=== PATIENT | female | born 2000 | race Caucasian/White ===

== ENCOUNTER 2022-11-23 21:30 | Emergency (ER) | payer SELFPAY ==
[~2022-11-23] VITALS: Ht 162.6 cm; Wt 74.8 kg
--- NOTE | 2022-11-23 21:33 | NUR ---
pT ARRIVED WITH COMPLAINT OF RIGHT SHOULDER PAIN. PT ALERT AND ORIENTED X4, VSS, NO SIGNS OF ACUTE DISTRESS. WILL PREP PT FOR MODERATE SEDATION PER MDS REQUEST.
[2022-11-23 21:36] VITALS: BP_SYST 126
[2022-11-23] MEDS ORDERED: PROPOFOL 200MG/ 20ML VIAL (DIPRIVAN) IV ONE (21:45)
--- NOTE | 2022-11-23 22:45 | NUR ---
PT PREP FOR MODERATE SEDATION WITH MONITOR, CRASH CART AT BEDSIDE, MD, RN, RT AT BEDSIDE.
--- NOTE | 2022-11-23 22:59 | NUR ---
REDUCTION SUCCESFUL PER MD. PT AWAKE AND ALERT X4, VSS.
[2022-11-23] MEDS ORDERED: NAPR-1172 PO (23:15)
[2022-11-23 23:17] VITALS: BP_SYST 121
--- NOTE | 2022-11-23 23:35 | NUR ---
Patient given written and verbal discharge instructions and verbalizes understanding. ER MD discussed with patient the results and treatment provided. Patient in stable condition. ID arm band removed. IV catheter removed intact and dressing applied, no active bleeding. Rx of NAPROXYN given. Patient educated on pain management and to follow up with PMD. Pain Scale . Opportunity for questions provided and answered. Medication side effect fact sheet provided.
== END 2022-11-23 23:17 | disposition home or self-care (01) ==
LOC: SED 21:30
DX: S43.014A Anterior dislocation of right humerus, initial encounter (principal); Z79.899 Other long term (current) drug therapy; W21.05XA Struck by basketball, initial encounter; Y93.67 Activity, basketball; Y92.89 Other specified places as the place of occurrence of the external cause; Y99.8 Other external cause status
CPT/HCPCS: 99285; 23650; 73020; 99152; J2704